=== PATIENT | female | born 2000 | race Caucasian/White ===

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

== ENCOUNTER 2019-07-10 08:15 | Day surgery (SDC) | payer BC ==
[~2019-07-10] VITALS: Ht 172.7 cm; Wt 81.6 kg
[~2019-07-10 08:15] MED LIST changes: +LIDOCAINE 1% MDV 20ML VIAL SQ PRN; +LR 1,000 ML IV ONE
[2019-07-10 08:35] LABS: HEMATOCRIT 41.1 % (36.0-47.0); HEMOGLOBIN 13.7 g/dl (12.0-15.5); MEAN CORPUSCULAR HEMOGLOBIN 30.6 pg (27.0-33.0); MEAN CORPUSCULAR HGB CONC 33.3 g/dl (32.0-36.5); MEAN CORPUSCULAR VOLUME 91.7 fl (80.0-96.0); PLATELET COUNT, AUTOMATED 286 10^3/uL (150-450); RED BLOOD COUNT 4.48 10^6/uL (4.00-5.40); WHITE BLOOD COUNT 6.1 10^3/uL (4.0-10.0)
[2019-07-10 08:56] LABS: URINE PREG TEST NEGATIVE (NEGATIVE)
[2019-07-10] MEDS ORDERED: LIDOCAINE 2% INJ 100 MG/5 ML SDV (FOR ANES.) As Ordered ONE (09:24)
[2019-07-10] MEDS ORDERED: PROPOFOL 200 MG/20 ML VIAL As Ordered ONE ×2 (09:24→10:25)
[2019-07-10] MEDS ORDERED: ONDANSETRON 4MG/2ML VIAL (J2405) As Ordered ONE (09:24)
[2019-07-10] MEDS ORDERED: fentaNYL 100 MCG/2 ML INJECTION (J3010) As Ordered ONE (09:27)
[2019-07-10] MEDS ORDERED: MIDAZOLAM INJ 2 MG/2 ML VIAL (J2250) As Ordered ONE (09:27)
[2019-07-10] MEDS ORDERED: LIDOCAINE 1% SDV INJ 30 ML VIAL As Ordered ONE (09:59)
[2019-07-10 11:30] VITALS: BP 118/72
[2019-07-10] MEDS ORDERED: IBUPROFEN 800 MG TAB PO ONE (11:30)
--- NOTE | 2019-07-13 10:07 | RO ---
DATE OF PROCEDURE: 07/10/2019 INDICATION: Dara is a 19-year-old female with an embedded NEXPLANON on her left arm. Patient is extremely nervous and did not want this removed at the office. After extensive counseling, a decision was made to proceed for removal in the operating room. PREOPERATIVE DIAGNOSIS: Embedded left forearm NEXPLANON. POSTOPERATIVE DIAGNOSIS: Embedded left forearm NEXPLANON. PROCEDURE: Removal of imbedded NEXPLANON on the left arm. SURGEON: Dr. Mihir De La Fuente [employer]STRUCTION ENGINEERING MANAGER: ANESTHESIA: IV sedation and local anesthetic over the area. COMPLICATIONS: None. ESTIMATED BLOOD LOSS: Less than 5 mL. PROCEDURE: After obtaining informed consent, the patient was taken to the operating room where she was then draped and prepped in the usual fashion. We then used 2% lidocaine at the site on the left arm. Then a small incision was made. The NEXPLANON was palpated and brought down to the incision area using a hemostat. The NEXPLANON was grasped and removed and the area was then closed using Steri-Strips. A pressure dressing was placed at the arm. The patient tolerated the procedure well. She was then transferred to the recovery room in stable condition.
== END 2019-07-10 11:50 | disposition home or self-care (01) ==
LOC: M SDC 08:15
PROVIDERS: ATTEND Obstetrics & Gynecology
DX: Z30.46 Encounter for surveillance of implantable subdermal contraceptive (principal); F41.9 Anxiety disorder, unspecified; F32.9 Major depressive disorder, single episode, unspecified
CPT/HCPCS: 11982; 36415; 84703; 85027; 86850; 86900; 86901; 88300; J2250; J2405; J3010